=== PATIENT | female | born 1995 | race Caucasian/White ===

== ENCOUNTER 2016-11-10 13:28 | Emergency (ER) | payer OTHER ==
[2016-11-10 14:55] LABS: PH,URINE 6.5 (5.0-8.0); URINE BILIRUBIN NEGATIVE (NEGATIVE); URINE BLOOD TRACE (NEGATIVE); URINE GLUCOSE (UA) NEGATIVE (NEGATIVE); URINE LEUKOCYTE ESTERASE NEGATIVE (NEGATIVE); URINE NITRITE NEGATIVE (NEGATIVE); URINE PROTEIN 1+ (NEGATIVE); URINE UROBILINOGEN NORMAL (0-1 mg/dl)
[2016-11-10 14:58] LABS: HCG,QUALITATIVE URINE NEGATIVE; URINE APPEARANCE CLEAR; URINE COLOR YELLOW
[2016-11-10 15:10] LABS: URINE RBC 0-1 /hpf
[2016-11-10 15:12] LABS: URINE EPITHELIAL CELLS 15-20 /hpf
[2016-11-10 15:13] LABS: URINE BACTERIA 1+
[2016-11-10 15:53] LABS: URINE BILIRUBIN NEGATIVE (NEGATIVE); URINE BLOOD NEGATIVE (NEGATIVE); URINE GLUCOSE (UA) NEGATIVE (NEGATIVE); URINE LEUKOCYTE ESTERASE NEGATIVE (NEGATIVE); URINE NITRITE NEGATIVE (NEGATIVE); URINE PROTEIN 1+ (NEGATIVE); URINE UROBILINOGEN NORMAL (0-1 mg/dl)
[2016-11-10 16:01] LABS: URINE APPEARANCE CLEAR; URINE COLOR YELLOW
[2016-11-10 16:03] LABS: URINE EPITHELIAL CELLS 0-1 /hpf; URINE RBC 0 /hpf; URINE WBC RARE /hpf
[2016-11-10 16:04] LABS: URINE BACTERIA 0
--- NOTE | 2016-11-10 17:33 | US ---
PELVIC COMPLETE, TRANSVAGINAL ECHOGRAPHY History: Left lower quadrant pain for 2 days. Comparison: None. Procedure: Transabdominal and transvaginal ultrasonography both were performed for this examination. Findings: Uterus: The uterus appears to be of normal contour measuring 7.3 x 4.1 x 5.4 cm. The myometrium is homogeneous. There is a small right eccentric possibly cystic focus seen within the myometrium adjacent to the fundal portion of the endometrial stripe. Endometrium: The endometrial thickness measures 12.3mm in greatest AP diameter. No discrete endometrial abnormalities or masses are observed. Right ovary/right adnexa: The right ovary measures 1.6 x 2.3 x 2.0 cm. There is flow within the right ovary. No right adnexal mass is visualized. Left ovary/left adnexa: The left ovary measures 2.5 x 2.7 x 3.8 cm. There is flow within the left ovary. A hypoechoic peripheral nodule is seen involving the parenchyma of the left ovary measuring 1.7 x 1.6 x 1.5 cm. There appears to be flow on the periphery of the structure. This may reflect a complicated or hemorrhagic cyst or less likely a solid ovarian nodule. Pelvic cul-de-sac: No significant pelvic free fluid is seen. Impression: 1. A small cystic focus within the myometrium adjacent to the fundal portion of the endometrial. 2. A hypoechoic 1.7 cm left ovarian nodule, possibly reflecting a complicated or hemorrhagic cyst or less likely a solid ovarian nodule. Follow-up in 6-12 weeks is recommended. 3. No significant pelvic free fluid visualized.
[2016-11-10] MEDS ORDERED: IBUPROFEN 600 MG TABLET ONE (17:45)
[2016-11-11 15:12] LABS: CHLAMYDIA BD Negative (Negative); N.GONORRHOEAE BD Negative (Negative); SOURCE Urine (())
== END 2016-11-10 18:09 | disposition home or self-care (01) ==
LOC: ED 13:28
DX: R10.2 Pelvic and perineal pain (principal); N83.202 Unspecified ovarian cyst, left side; R11.2 Nausea with vomiting, unspecified

== ENCOUNTER 2016-11-19 21:57 | Emergency (ER) | payer OTHER ==
[2016-11-20] MEDS ORDERED: IBUPROFEN 800 MG TABLET ONE (00:14)
== END 2016-11-20 00:18 | disposition home or self-care (01) ==
LOC: ED 21:57
DX: R07.9 Chest pain, unspecified (principal)
CPT/HCPCS: 99282 ×2; 93005; A9270